=== PATIENT | male | born 1960 | race Two or more races ===

== ENCOUNTER 2017-12-03 16:50 | Emergency (ER) | payer MEDICARE, OTHER ==
[2017-12-03 16:55] VITALS: BP 148/106; PULSE 112; RESP 18; TEMP 99; O2SAT 98
[2017-12-03] MEDS ORDERED: KETOROLAC TROMETHAMINE 30 MG/ML SOL ONE (17:17)
[2017-12-03] MEDS: KETOROLAC TROMETHAMINE 30 MG/ML SOL IM ONE (17:20)
== END 2017-12-03 17:51 | disposition home or self-care (01) | DRG 556 ==
LOC: ED 16:50
DX: M79.604 Pain in right leg (principal); M54.41 Lumbago with sciatica, right side
CPT/HCPCS: 99282; J1885

== ENCOUNTER 2018-10-15 17:58 | Emergency (ER) | payer MEDICARE, OTHER ==
[2018-10-15 18:13] VITALS: RESP 20
[2018-10-15] MEDS ORDERED: IBUPROFEN 600 MG TAB PO ONE (18:30)
[2018-10-15] MEDS ORDERED: IBUPROFEN 600 MG TAB ONE (18:32)
[2018-10-15 19:47] VITALS: BP 132/84; PULSE 97; TEMP 96.8; O2SAT 98
== END 2018-10-15 19:43 | disposition home or self-care (01) | DRG 547 ==
LOC: ED 17:58
DX: M45.2 Ankylosing spondylitis of cervical region (principal)
CPT/HCPCS: 70450; 72125; 99282; 99283; A9270-GY